=== PATIENT | female | born 1970 | race Two or more races ===

== ENCOUNTER 2025-05-11 20:04 | Emergency (ER) | payer OTHER, SELFPAY ==
--- NOTE | ~2025-05-11 | CT_ITS ---
CLINICAL HISTORY: Seizure, ?Head injury CT head without contrast Comparison: None provided Findings: BRAIN: No acute infarct, hemorrhage, or mass effect. No abnormal atrophy. CSF SPACES: No hydrocephalus or effacement of basal cisterns. SKULL: No calvarial fracture. SINUSES: No significant mucosal thickening or effusion on limited views. ORBITS: Limited views are unremarkable. OTHER: Negative. IMPRESSION: 1. No acute intracranial findings. This document has been electronically signed by: Debra Sue MD on 05/12/2025 00:01:40
[2025-05-11 20:09] VITALS: BP 126/94; PULSE 84; O2SAT 98
[2025-05-11 20:15] VITALS: BP 111/68; PULSE 79; RESP 16; TEMP 36.6; O2SAT 96; BMI 36.6
[2025-05-11 20:52] LABS: MANUAL DIFF FLAG NO
[2025-05-11 20:56] LABS: COVID-19 Test Negative (Negative); IDNOW Serial# 55D5AD1C
[2025-05-11 20:58] LABS: IDNOW Serial# 55D5AD1C; Influenza B2 Negative (Negative)
[2025-05-11 20:59] LABS: Hematocrit 44.7 % (42.0-52.0); Hemoglobin 14.3 g/dl (14.0-18.0); Imm Gran Abs Auto 0.03 X10*3/uL (0.00-0.03); Imm Gran Pct Auto 0.4 % (0.0-0.4); Lymphocytes Absolute Auto 2.1 X10*3/uL (1.2-4.9); Mean Corpuscular HGB Conc 32.0 g/dl (31.0-36.0); Mean Corpuscular Hemoglobin 31.4 pg (27.0-33.0); Mean Corpuscular Volume 98.2 fL (80.0-98.0); NRBC Abs Auto 0.000 X10*3/uL (0.0-0.012); NRBC Pct Auto 0.0 /100WBC (0.0-0.2); Platelet Count 308 X10*3/uL (160-400); Red Blood Count 4.55 X10*6/uL (4.60-5.80); White Blood Count 7.8 X10*3/uL (4.8-10.8)
--- OUTSIDE RECORDS SUMMARY | 2025-05-11 21:10 | XMS_ITS | Encounter Summary ---
Author Organization [employer] Address [address] [place] [address] Care Team Providers Care Traffic Officer Name Role Phone Daphnie Hedrick MD Primary Care Provider [phone] Shelby Solano RN Unavailable Unavailable Reason for Visit * Reason Onset Date Comments Letter Request 02/03/2023 Encounter Details Date Type Department Care Team (Late st Contact Info) Description 02/03/2023 Telephone Adult Medicine [address] [place] [address] Daphnie Hedrick MD [address] [place] [address] Letter Request Social History Tobacco Use Types Packs/Day Years Used Date Smoking Tobacco: Never Smokeless Tobacco: Never Alcohol Use Standard Drinks/Week Comments Never 0 (1 standard drink = 0.6 oz pur e alcohol) Alcohol Answer Date Recorded How often do you have a drink containing alcohol ? 0 08/26/2022 How many drinks containing a lcohol do you have on a typical day when you are drinking? 0 08/26/2022 How often do you have six or more drinks on one occasion? 0 08/26/2022 Depression Answer Date Recorded Patient Health Questionnaire-2 Score 0 08/26/2022 Comments Unknown Sex and Gender Information Value Date Recorded Sex Assigned at Female 04/18/2022 5:43 PM EDT Legal Sex Female 5:43 PM EDT Gender Identity Female 04/18/2022 5:43 PM EDT Sexual Orientation Straight 04/18/2022 5: 43 PM EDT documented as of this encounter Miscellaneous Notes * Telephone Encounter - Oniel Lee LPN - 02/03/2023 3:26 PM EDT Called pt, no answer, LVM to c/b. * Telephone Encounter - Mel Goldberg - 02/03/2023 11:04 AM EDT Pt. requesting a letter that states what her current mental conditions are. Pt. is being assisted by a program where she lives. This [facility] assists with paying pt's. rent. Without this letter pt. losses the assistance. Personal Finance Instructor Marta: [phone] documented in this encounter Plan of Treatment Upcoming Encounters Date Type Department Care Team (Late st Contact Info) Description 05/30/2025 12:40 PM EST Office Visit Adult Medicine [address] [place] [address] Daphnie Hedrick MD [address] [place] [id number] documented as of this encounter Visit Diagnoses Not on filedocumented in this encounter Care Teams Traffic Officer Relationship Specialty Start Date End Date Daphnie Hedrick MD [address] [place] [address] PCP - General 06/22/21 Shelby Solano, BERNA Registered Nurse Case Management 07/22/24 documented as of this encounter
--- OUTSIDE RECORDS SUMMARY | 2025-05-11 21:10 | XMS_ITS | Encounter Summary ---
Author Organization [employer] Address [address] [place] [address] Care Team Providers Care Eap Clinician Name Role Phone Daphnie Hedrick MD Primary Care Provider [phone] Shelby Solano RN Unavailable Unavailable Reason for Visit * Reason Comments Med Refill Encounter Details Date Type Department Care Team (Late st Contact Info) Description 2022 Refill Behavioral Health [address] [place] [address] Saba Guillen MD [address] [place] [address] Post-traumatic stress disorder, unspecified Social History Tobacco Use Types Packs/Day Years Used Date Smoking Tobacco: Never Assessed Alcohol Answer Date Recorded How often do [...] Orientation Straight 04/18/2022 5: 43 PM EDT COVID-19 Exposure Response Date Recorded In the last 10 days, have yo u been in contact with someone who was confirmed or suspected to have Coronavirus/COVID-19? No / Unsure 08/26/2022 8:39 AM EST documented as of this encounter Functional Status * Over the past 2 weeks, how often have you been bothered by any of the following problems? Question Answer Date of Assessment Author Little interest or pleasure in doing things Not at all 08/26/2022 8:49 AM EST Painter Forrester, L uis Feeling down, depressed, or hopeless Not at all 08/26/2022 8:49 AM EST Painter Forrester, L uis Patient Health Questionnaire -2 Score 0 08/26/2022 8:49 AM EST Painter Forrester, L uis documented as of this encounter Miscellaneous Notes * Telephone Encounter - Saba Guillen MD - 08/26/2022 10:41 AM EST Last seen in November as per [email or web address], she needs appt for refills documented in this encounter Plan of Treatment Upcoming Encounters Date Type Department Care Team (Late st Contact Info) Description 05/30/2025 12:40 PM EST Office Visit Adult Medicine [address] [place] [address] Daphnie Hedrick MD [address] [place] [phone] documented as of this encounter Visit Diagnoses Diagnosis Post-traumatic stress disorder, unspecified documented in this encounter Care Teams Eap Clinician Relationship Specialty Start Date End Date Daphnie Hedrick MD [address] [place] [id number] PCP - General 06/22/21 Shelby Solano, BERNA Registered Nurse Case Management 07/22/24 documented as of this encounter
--- OUTSIDE RECORDS SUMMARY | 2025-05-11 21:10 | XMS_ITS | Encounter Summary ---
Author Organization [email or web address] Address [address] [place] [address] Care Team Providers Care Hat Presser Name Role Phone Daphnie Hedrick MD Primary Care Provider [phone] Shelby Solano RN Unavailable Unavailable Encounter Details Date Type Department Care Team (Late st Contact Info) Description 07/08/2022 Abstract Adult Medicine [address] [place] [address] ProviderBlake MD Social History Tobacco Use Types Packs/Day Years Used Date Smoking Tobacco: Never Assessed Comments Unknown Sex and Gender Information Value Date Recorded Sex Assigned at Female 04/18/2022 5:43 PM EDT Legal Sex Female 5:43 PM EDT Gender Identity Female 04/18/2022 5:43 PM EDT Sexual Orientation Straight 04/18/2022 5: 43 PM EDT documented as of this encounter Plan of Treatment Upcoming Encounters Date Type Department Care Team (Late st Contact Info) Description 05/30/2025 12:40 PM EST Office Visit Adult Medicine [address] [place] [address] Daphnie Hedrick MD [address] [place] [address] documented as of this encounter Visit Diagnoses Not on filedocumented in this encounter Care Teams Hat Presser Relationship Specialty Start Date End Date Daphnie Hedrick MD [address] [place] [address] PCP - General 1/1/22 Shelby Solano, BERNA Registered Nurse Case Management 07/22/24 documented as of this encounter
--- OUTSIDE RECORDS SUMMARY | 2025-05-11 21:10 | XMS_ITS | Encounter Summary ---
Author Organization [employer] Address [address] [place] [address] Care Team Providers Care Shipping Point Inspector Name Role Phone Daphnie Hedrick MD Primary Care Provider [phone] Shelby Solano RN Unavailable Unavailable Encounter Details Date Type Department Care Team (Late st Contact Info) Description 04/06/2025 Patient Outreach Adult Medicine [address] [place] [address] Yong Shannon Social History Tobacco Use Types Packs/Day Years Used Date Smoking Tobacco: Every Day Cigarettes Smokeless Tobacco: Never Alcohol Use Standard Drinks/Week [...] PM EST Office Visit Adult Medicine [address] [place] [address] Daphnie Hedrick MD [address] [place] [address] documented as of this encounter Visit Diagnoses Not on filedocumented in this encounter Care Teams Shipping Point Inspector Relationship Specialty Start Date End Date Daphnie Hedrick MD [address] [place] [address] PCP - General 06/22/21 Shelby Solano, BERNA Registered Nurse Case Management 07/22/24 documented as of this encounter
--- OUTSIDE RECORDS SUMMARY | 2025-05-11 21:10 | XMS_ITS ---
Author Organization [employer] Address [address] [place] [address] [place] [address] Care Team Providers Care Television Maintenance Man Name Role Phone Daphnie Hedrick MD Primary Care Provider [phone] Shelby Solano RN Unavailable Unavailable High Risk Care Management Status:Enrolled (Active) Start date:06/29/2024 Enrollment date:06/29/2024 Enrollment reason:Identified as high-risk Case Team Name Relationship Phone Shelby Solano RN(Responsible Staff) Registered Nurse Continued Care and Services Coordination
--- OUTSIDE RECORDS SUMMARY | 2025-05-11 21:10 | XMS_ITS | Clinical Summary ---
Author Organization [employer] Address [address] [place] [address] 7 [place] [address] Care Team Providers Care Animal Nutrition Teacher Name Role Phone Daphnie Hedrick MD Primary Care Provider [phone] Shelby Solano RN Unavailable Unavailable Allergies Active Allergy Reactions Criticality Noted Date Comments Clonidine Dizziness 10/29/2021 Ketorolac Tromethamine 10/29/2021 Other reaction(s): Urticaria Lamotrigine Unknown 10/29/2021 Trazodone 10/29/2021 Other reaction(s): Unknown Medications nicotine (Nicoderm CQ) 14 MG/24HR patchIndications :Tobacco use disorder, mild Place 1 patch on the skin 1 (one) time each day at the same time. 30 patch 3 023 Active Blood Pressure Monitoring (Omron 10 Series BP Monitor) deviceIndication s:Essential (primary) hypertension 1 each Once daily. 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 90 tablet 025 2025 Active albuterol (2.5 MG/3ML) 0.083% nebulizer solutionIndicati ons:Moderate persistent asthma, uncomplicated Take 3 mL (2.5 mg) by nebulization every 6 (six) hours if needed for shortness of breath or wheezing. 360 mL 1 025 2025 Active Additional Information Patient not taking.Reason: Not available, Reported on 05/02/2025 Respiratory Therapy Supplies (Nebulizer/Tubin g/Mouthpiece) kit NEBULIZER MACHINE WITH TUBING AND MASK DISPENSE:1 REFILL:0 NEED:LIFETIME PATIENT KNOWS HOW TO USE MACHINE DX:J45.40 [employer] ID#[id number] 1 kit 025 2025 Active Additional Information Patient not taking.Reason: Not available, Reported on 05/02/2025 [facility]. Devices (Commode) [facility] COMMODE DISPENSE:1 REFILL:0 WEIGHT: 201LBS DX:G62.9,N39.49 8 [employer] ID#[id number] 1 each Active Incontinence Supply Disposable [facility] ADULT PULL UP SIZE LARGE 5 PER DAY DISPENSE:150/MO NTH REFILL:12 WEIGHT:201LBS DX:G62.8, N39.498 [facility] ID#[id number] 150 Units 12 025 2025 Active Cholecalciferol (Vitamin D3) 1000 units capsuleIndicatio ns:Vitamin D deficiency Take 1,000 Units by mouth Once per day. 90 capsule 3 025 2025 Active FLUoxetine (PROzac) 20 MG capsuleIndicatio ns:Depression with anxiety Take 1 capsule (20 mg) by mouth Once per day. 90 capsule 025 2025 Active hydrOXYzine HCl (Atarax) 50 MG tabletIndication s:Depression with anxiety Take 2 tablets (100 mg) by mouth 3 times daily. 540 tablet 2025 Active ipratropium-albu terol (Combivent Respimat) 20-100 MCG/ACT inhalerIndicatio ns:Moderate persistent asthma, uncomplicated Inhale 1 puff 2 times daily. 4 g 11 Active lisinopril 20 MG tabletIndication s:Essential (primary) hypertension Take 1 tablet (20 mg) by mouth Once per day. 90 tablet 025 2025 Active prazosin (Minipress) 1 MG capsuleIndicatio ns:Posttraumatic stress disorder Take 1 capsule (1 mg) by mouth at bedtime. TAKE 1 CAPSULE BY MOUTH AT BEDTIME 90 capsule 11/07/08 Active QUEtiapine (SEROquel) 300 MG tabletIndication s:Insomnia due to mental disorder Take 1 tablet (300 mg) by mouth at bedtime. 90 tablet 2025 Active topiramate 50 MG tabletIndication s:Chronic migraine without aura without status migrainosus, not intractable Take 1 tablet (50 mg) by mouth every 8 (eight) hours. 270 tablet 3 2025 Active topiramate 50 MG tabletIndication s:Chronic migraine without aura without status migrainosus, not intractable Take 1 tablet (50 mg) by mouth every 8 (eight) hours. 270 tablet 1 2024 Discontinued(R eorder (will not trigger notification to Pharmacy)) ipratropium-albu terol (Combivent Respimat) 20-100 MCG/ACT inhalerIndicatio ns:Moderate persistent asthma, uncomplicated Inhale 1 puff 2 times daily. 4 g 11 2024 Discontinued(R eorder (will not trigger notification to Pharmacy)) Cholecalciferol (Vitamin D3) 1000 units capsuleIndicatio ns:Vitamin D deficiency Take 1,000 Units by mouth Once per day. 90 capsule 3 2024 Discontinued(R eorder (will not trigger notification to Pharmacy)) hydrOXYzine HCl (Atarax) 50 MG tabletIndication s:Depression with anxiety Take 2 tablets (100 mg) by mouth 3 times daily. 540 tablet 2024 Discontinued(R eorder (will not trigger notification to Pharmacy)) lisinopril 20 MG tabletIndication s:Essential (primary) hypertension Take 1 tablet (20 mg) by mouth Once per day. 90 tablet 2024 Discontinued(R eorder (will not trigger notification to Pharmacy)) QUEtiapine (SEROquel) 300 MG tabletIndication s:Insomnia due to mental disorder Take 1 tablet (300 mg) by mouth at bedtime. 90 tablet 025 2024 Discontinued(R eorder (will not trigger notification to Pharmacy)) prazosin (Minipress) 1 MG capsuleIndicatio ns:Posttraumatic stress disorder Take 1 capsule (1 mg) by mouth at bedtime. TAKE 1 CAPSULE BY MOUTH AT BEDTIME 90 capsule 025 2024 Discontinued(R eorder (will not trigger notification to Pharmacy)) FLUoxetine (PROzac) 20 MG capsuleIndicatio ns:Depression with anxiety Take 1 capsule (20 mg) by mouth Once per day. 90 capsule 025 2024 Discontinued(R eorder (will not trigger notification to Pharmacy)) Active Problems Problem Noted Date Diagnosed Date Urinary incontinence 09/05/2024 Alcohol abuse 07/08/2022 Anxiety 07/08/2022 Bipolar 2 disorder ([facility]) 07/08/2022 Chronic vaginitis 07/08/2022 Compartment syndrome 07/08/2022 Constipation 07/08/2022 Depressed bipolar I disorder ([facility]) Hearing loss of left ear 07/08/2022 Hot flashes due to menopause 07/08/2022 Hyperlipidemia 07/08/2022 Hypertension 07/08/2022 Insomnia 07/08/2022 Decreased appetite 07/08/2022 Major depressive disorder with single episode Malunion of fracture 07/08/2022 Migraine headache 07/08/2022 Moderate persistent asthma, uncomplicated 2022 Morbid obesity ([facility]) 07/08/2022 Neuropathy 07/08/2022 Nondisplaced fracture of hea d of right radius, subsequent encounter for closed fracture with malunion 07/08/2022 Posttraumatic stress disorder 07/08/2022 Reduced visual acuity 07/08/2022 Scleroderma 07/08/2022 Vitamin D deficiency 07/08/2022 Encounters Date Type Department Care Team Description 05/05/2025 Refill Adult Medicine [address] [place] [address] Daphnie Hedrick MD Vitamin D deficiency; Depression with anxiety; Moderate persistent asthma, uncomplicated; Essential (primary) hypertension; Posttraumatic stress disorder; Insomnia due to mental disorder; Chronic migraine without aura without status migrainosus, not intractable 05/03/2025 Telephone Adult Medicine [address] [place] [address] Daphnie Hedrick MD Referral (Pt called because she needs a clearance letter from PCP to enter drug/alcohol rehab at [facility]. , P: [phone]) 05/03/2025 Patient Outreach Adult Medicine [address] [place] [phone] Yong Shannon 05/03/2025 Telephone [facility] [address] [place] [address] Jenny Wells 05/02/2025 2:30 PM EST Office Visit [facility] [address] [place] [address] [phone] Jenny Wells 05/02/2025 1:40 PM EST Office Visit Adult Medicine [address] [place] [address] 71086 Tammi Lind, ANP- Alcohol abuse (Primary Dx); Essential (primary) hypertension; Depression with anxiety; Chronic midline thoracic back pain 05/02/2025 Patient Outreach Adult Medicine [address] [place] [address] [phone] Shelby Solano, BERNA 05/02/2025 Telephone Adult Medicine [address] [place] [address] 50193 Daphnie Hedrick MD Clearance letter request 04/28/2025 Patient Outreach Adult Medicine [address] [place] [address] [phone] Yong Shannon 04/27/2025 Patient Outreach Adult Medicine [address] [place] [address] [phone] Shelby Solano, BERNA 04/20/2025 Patient Outreach Adult Medicine [address] [place] [address] 24208 Shelby Solano, BERNA 04/13/2025 Patient Outreach Adult Medicine [address] [place] [address] 76754 Shelby Solano, BERNA 04/07/2025 Telephone Adult Medicine [address] [place] [address] 37053 Mami Wright, BERNA 04/06/2025 Patient Outreach Adult Medicine [address] [place] [address] [phone] Shelby Solano, BERNA 04/06/2025 Patient Outreach Adult Medicine [address] [place] [address] 11333 Yong Shannon 04/04/2025 Patient Outreach Adult Medicine [address] [place] [address] Shelby Solano, BERNA 03/31/2025 Patient Outreach Adult Medicine [address] [place] [address] Yong Shannon 03/27/2025 Patient Outreach Adult Medicine [address] [place] [address] Shelby Solano RN 03/13/2025 Patient Outreach Adult Medicine [address] [place] [address] [phone] Shelby Solano, BERNA 03/13/2025 Patient Outreach Adult Medicine [address] [place] [address] [phone] Yong Shannon 02/27/2025 Patient Outreach Adult Medicine [address] [place] [address] [phone] Shelby Solano RN 02/20/2025 Telephone Adult Medicine [address] [place] [address] [phone] Andrea Cosby NP 02/13/2025 3:00 PM EDT Office Visit Patient [facility] [address] [place] [address] [phone] Tasneem Alatorre, SAL Hypertension, unspecified type (Primary Dx) 02/13/2025 Patient Outreach Adult Medicine [address] [place] [address] 39875 Yong Shannon 02/10/2025 Patient Outreach Adult Medicine [address] [place] [address] 92432 Shelby Solano, BERNA from Last 3 Months Immunizations Immunization Administration Dates Next Due Influenza Injectable Quadriv alant Preservative Free IIV4 MDCK 04/30/2018 Influenza injectable quadriv alent IIV4 with preservative 05/07/2022,04/16/2019 Influenza injectable quadriv alent preservative free 03/08/2021,06/06/2020,03/07/2020,04/22,03/13/2017,03/05/2016 Influenza, seasonal, injecta ble, preservative free 09/05/2024,05/05/2024,04/15/2023 Moderna Covid-19 Vaccine 6+ Bivalent 05/07/2022 Pfizer Covid-19 Vaccine 12+ 02/12/2021 Pneumococcal Polysaccharide PPSV23 05/05,04/15/2023,08/26/2022,05/09 Tdap 09/05/2024,07/05/2014 Zoster, Recombinant 08/26/2022 Social History Tobacco Use Types Packs/Day Years Used Date Smoking Tobacco: Every Day Cigarettes Smokeless Tobacco: Never Tobacco Cessation:Ready to Q uit: Yes; Counseling Given: Not Answered Alcohol Use Standard Drinks/Week Comments Never 0 (1 standard drink = 0.6 oz pur e alcohol) Alcohol Answer Date Recorded How often do you have a drink containing alcohol ? 0 05/02/2025 How many drinks containing a lcohol do you have on a typical day when you are drinking? 1 05/02/2025 How often do you have six or more drinks on one occasion? 0 05/02/2025 Housing Stability Answer Date Recorded What is your housing situation today? I have darnell montiel 05/02/[address] you li ve. Do you have problems with any of the following? None of the above 05/02/2025 Food Insecurity Answer Date Recorded Within the past 12 months, y ou worried that your food would run out before you got money to buy more: Never True 05/02/2025 Within the past 12 months,th e food you bought just didn't last and you didn't have enough money to get more: Never True 04/2025 Transportation Answer Date Recorded In the past 12 months, has l ack of transportation kept you from medical appts, meetings, work or from getting things needed for daily living? No 05/02/2025 Utilities Answer Date Recorded In the past 12 months, has t he electric, gas, oil or water company threatened to shut off services in your home? No 05/02/2025 Depression Answer Date Recorded Patient Health Questionnaire-2 Score 0 05/02/2025 Internet Access Answer Date Recorded Internet Access Q1 Yes 05/02/2025 Internet Access Q2 Not on file 05/02/2025 Comments Unknown Sex and Gender Information Value Date Recorded Sex Assigned at Female 04/18/2022 5:43 PM EDT Legal Sex Female 5:43 PM EDT Gender Identity Female 04/18/2022 5:43 PM EDT Sexual Orientation Straight 04/18/2022 5: 43 PM EDT Last Filed Vital Signs Vital Sign Reading Time Taken Comments Blood Pressure 154/106 05/02/2025 2:37 PM EST Pulse 80 05/02/2025 2:37 PM EST Temperature 35.9 C (96.7 F) 05/02/2025 1:47 PM EST Respiratory Rate 20 09/05/2024 2:28 PM EDT Oxygen Saturation 98% 05/02/2025 1:47 PM EST Inhaled Oxygen Concentration - - Weight 97.1 kg (214 lb) 05/02/2025 1:47 PM EST Height 160 cm (5' 3 ) 05/02/2025 1:47 PM EST Body Mass Index 37.91 05/02/2025 1:47 PM EST Plan of Treatment Upcoming Encounters Date Type Department Care Team (Late st Contact Info) Description 05/30/2025 12:40 PM EST Office Visit Adult Medicine [address] [place] [address] Daphnie Hedrick MD [address] [place] [address] Health Maintenance Due Date Last Done Comments CT Colonography 1970 Colonoscopy 1970 Colorectal Cancer Screening 1970 FIT DNA/Cologuard 1970 FIT 1970 FOBT 1970 Sigmoidoscopy 1970 Hepatitis B Vaccines (1 of 3 - 19+ 3-dose series) 1989 Pap Smear 08/26/1991 Cervical Cancer Screening 2000 HPV/Cotest 2000 Mammogram 2010 RSV Patients and Patients Aged 60 years or older (1 - Risk 50-74 years 1-dose series) 2020 Zoster Vaccines (2 of 2) 10/21/2022 08/26/2022 COVID-19 Vaccine ( - season) 2025 05/07/2022, 02/12/2021 Influenza Vaccine (#1) 2025 , 05/05/2024, 04/15/2023, Additional history exists Pneumococcal Vaccine: 50+ Years (2 of 2 - PCV) 05/05/2025 05/05/2024, 04/15/2023, 08/26/2022, Additional history exists Tobacco Screening 02/13/2026 02/13/2025 Alcohol/Substance Use Screening 05/02/2026 05/02/2025 Depression Screening 05/02/2026 05/02/2025, 05/02/20 Disability Screening 05/02/2026 05/02/2025 SDOH Screening 05/02/2026 05/02/2025 Lipid Panel 09/05/2029 09/05/2024, 04/18/2020 DTaP/Tdap/Td Vaccines (3 - Td or Tdap) 09/05/2034 09/05/2024, 07/05/2014 HIV Screening Completed 09/05/2024, 04/18/2020 Hepatitis C Screening Completed 09/05/2024, 020 HIB Vaccines Aged Out No longer eligi ble based on patient's age to complete this topic HPV Vaccines Aged Out No longer eligi ble based on patient's age to complete this topic Hepatitis A Vaccines Aged Out No long er eligible based on patient's age to complete this topic IPV Vaccines Aged Out No longer eligi ble based on patient's age to complete this topic Meningococcal B Vaccine Aged Out No l onger eligible based on patient's age to complete this topic Meningococcal Vaccine Aged Out No deepika randall eligible based on patient's age to complete this topic RSV under 20 months Aged Out No longe r eligible based on patient's age to complete this topic Rotavirus Vaccines Aged Out No longer eligible based on patient's age to complete this topic Procedures Procedure Name Priority Date/Time Associated Diagnosis Comments ECG 12-LEAD Routine 02/13/2025 4:13 PM EDT Hypertension, unspecified type POCT GLUCOSE Routine 02/13/2025 4:04 PM EDT Hypertension, unspecified type HEPATITIS C AB W/REFL TO HCV RNA, QN, PCR Routine 09/05/2024 4:35 PM EDT HIV 1/2 ANTIGEN/ANTIBODY, FOURTH GENERATION W/RFL Routine 09/05/2024 4:35 PM EDT LIPID PANEL WITH REFLEX TO DIRECT LDL Routine 09/05/2024 4:35 PM EDT Other fatigue from Last 3 Months or Most Recently Relevant to Health Maintenance Results * ECG 12 lead (02/13/2025 4:13 PM EDT) Narrative Tasneem Alatorre NP - 02/13/2025 4:13 PM EDT Sinus rhythm, HR 69 bpm Tasneem Alatorre NP ECG ORDERABLES Edited Resul t - Final * Random Blood Sugar (fingerstick) (02/13/2025 4:04 PM EDT) Glucose Blood, POC 92 60 - 200 mg/dL Blood Capillary blood specimen / Unknown 02/13/2025 4:04 PM EDT Tasneem Alatorre NP POINT OF CARE TEST ENTER/JASON T ORDERABLES Final Result * (ABNORMAL) Lipid Panel with Reflex to Direct LDL (09/05/2024 4:35 PM EDT) Cholesterol, Total 203(H) <200 mg/dL [facility] [place] [facility] HDL Cholesterol 51 > OR = 50 mg/dL [facility] [place] [facility] Triglycerides 149 <150 mg/dL [facility] [place] [facility] LDL Cholesterol 126(H) mg/dL [facility] [place] [facility] Comment: Reference range: <100 Desirable range <100 mg/dL for primary prevention; <70 mg/dL for patients with CHD or diabetic patients with > or = 2 CHD risk factors. LDL-C is now calculated using the Gina calculation, which is a validated novel method providing better accuracy than the Friedewald equation in the estimation of LDL-C. Jaren PELAEZ et al. KRISTIAN. 2013;310(19): 4727-9245 (http://education.Do[employer] Together/faq/EFU728) Chol/HDLC Ratio 4.0 <5.0 (calc) [facility] [place] [facility] Non-HDL Cholesterol 152(H) <130 mg/dL [facility] [place] [facility] Comment: For patients with diabetes plus 1 major ASCVD risk factor, treating to a non-HDL-C goal of <100 mg/dL (LDL-C of <70 mg/dL) is considered a therapeutic option. Blood 09/05/2024 4:35 PM EDT 09/05/2024 4:37 PM EDT Daphnie Hedrick MD LAB BLOOD ORDERABLES Final Res ult Performing Organization Address [facility] de Phone Number [address], [place] [address] [facility] [place] [employer] [address] * Hepatitis C Antibody with Reflex to HCV, RNA, Quantitative, Real-Time PCR (09/05/2024 4:35 PM EDT) Hepatitis C Antibody NON-REACT NEY NON-REACT NEY [facility] [place] [facility] Comment: HCV antibody was non-reactive. There is no laboratory evidence of HCV infection. In most cases, no further action is required. However, if recent HCV exposure is suspected, a test for HCV RNA (test code 89824) is suggested. For additional information please refer to http://education.[employer]/faq/PFO79d5 (This link is being provided for informational/ educational purposes only.) 09/05/2024 4:35 PM EDT 09/05/2024 4:37 PM EDT Daphnie Hedrick MD LAB BLOOD ORDERABLES Final Res ult Performing Organization Address [facility] Co de Phone Number [address], [place] [address] [facility] [place] [employer] [place] [address] * HIV-1/2 Antigen and Antibodies, Fourth Generation, with Reflexes (09/05/2024 4:35 PM EDT) HIV Antigen/Antibody, 4th Generation NON-REAC TIVE NON-REAC TIVE [facility] [place] [facility] Comment: HIV-1 antigen and HIV-1/HIV-2 antibodies were not detected. There is no laboratory evidence of HIV infection. PLEASE NOTE: This information has been disclosed to you from records whose confidentiality may be protected by state law. If your state requires such protection, then the state law prohibits you from making any further disclosure of the information without the specific written consent of the person to whom it pertains, or as otherwise permitted by law. A general authorization for the release of medical or other information is NOT sufficient for this purpose. For additional information please refer to http://education.[employer]/faq/RBM375 (This link is being provided for informational/ educational purposes only.) The performance of this assay has not been clinically validated in patients less than 2 years old. 09/05/2024 4:35 PM EDT 09/05/2024 4:37 PM EDT Daphnie Hedrick MD LAB BLOOD ORDERABLES Final Res ult [facility] [address], [place] [address] [facility] [place] [facility] [address] [place] [address] from Last 3 Months or Most Recently Relevant to Health Maintenance Insurance [facility] STANDARD [facility] [employer] Care Teams Animal Nutrition Teacher Relationship Specialty Start Date End Date Daphnie Hedrick MD [address] [place] [id number] PCP - General 06/22/21 Shelby Solano RN Registered Nurse Case Management 07/22/24
--- OUTSIDE RECORDS SUMMARY | 2025-05-11 21:10 | XMS_ITS | Encounter Summary ---
Author Organization [employer] Address [address] [place] [address] [place] [address] Care Team Providers Care Regulatory Law Specialist Name Role Phone Daphnie Hedrick MD Primary Care Provider [phone] Shelby Solano RN Unavailable Unavailable Reason for Visit * Reason [place] Date Comments Med Refill 05/05/2025 Encounter Details Date Type Department Care Team (Late st Contact Info) Description 05/05/2025 Refill Adult Medicine [address] [place] [address] Daphnie Hedrick MD [address] [place] [address] Vitamin D deficiency; Depression with anxiety; Moderate persistent asthma, uncomplicated; Essential (primary) hypertension; Posttraumatic stress disorder; Insomnia due to mental disorder; Chronic migraine without aura without status migrainosus, not intractable Social History Tobacco Use Types Packs/Day Years [...] encounter Miscellaneous Notes * Telephone Encounter - Willa Rodriguez - 05/05/2025 1:51 PM EST Please review the following medication requested by patient: Rx(s) pended for provider review/approval to patient's preferred pharmacy Please adjust QTY/refills as you see fit before sending rx OR refuse if rx is not appropriate Requested Prescriptions Pending Prescriptions Disp Refills Cholecalciferol (Vitamin D3) 1000 units capsule 90 capsule 3 Sig: Take 1,000 Units by mouth Once per day. FLUoxetine (PROzac) 20 MG capsule 90 capsule 0 Sig: Take 1 capsule (20 mg) by mouth Once per day. hydrOXYzine HCl (Atarax) 50 MG tablet 540 tablet 0 Sig: Take 2 tablets (100 mg) by mouth 3 times daily. ipratropium-albuterol (Combivent Respimat) 20-100 MCG/ACT inhaler 4 g 11 Sig: Inhale 1 puff 2 times daily. lisinopril 20 MG tablet 90 tablet 0 Sig: Take 1 tablet (20 mg) by mouth Once per day. prazosin (Minipress) 1 MG capsule 90 capsule 0 Sig: Take 1 capsule (1 mg) by mouth at bedtime. TAKE 1 CAPSULE BY MOUTH AT BEDTIME QUEtiapine (SEROquel) 300 MG tablet 90 tablet 0 Sig: Take 1 tablet (300 mg) by mouth at bedtime. topiramate 50 MG tablet 270 tablet Sig: Take 1 tablet (50 mg) by mouth every 8 (eight) hours. *Note-pt has updated pharmacy now* * Telephone Encounter - Mel Goldberg - 05/05/2025 11:46 AM EST REFILL REQUEST FORM Patient demographics Renee Rojo, 1970 Preferred callback # (And best time to reach patient) [phone] Preferred pharmacy (Make sure this is updated in patient's chart) [address] [address] Medications being requested (Include as much as info as possible; name, dosage, etc.) (All medications) Comments Pt. has updated pharmacy. Reminder: Please advise patient that if there are still refills remaining on their prescription, they need to contact the pharmacy directly to request a refill documented in this encounter Plan of Treatment Upcoming Encounters Date Type Department Care Team (Late st Contact Info) Description 05/30/2025 12:40 PM EST Office Visit Adult Medicine [address] [place] [address] Daphnie Hedrick MD [address] [place] [address] documented as of this encounter Visit Diagnoses Diagnosis Vitamin D deficiency Depression with anxiety Dysthymic disorder Moderate persistent asthma, uncomplicated Essential (primary) hypertension Unspecified essential hypertension Posttraumatic stress disorder Insomnia due to mental disorder Chronic migraine without aura without status migrainosus, not intractable documented in this encounter Care Teams Regulatory Law Specialist Relationship Specialty Start Date End Date Daphnie Hedrick MD [address] [place] [id number] PCP - General 06/22/21 Shelby Solano RN Registered Nurse Case Management 07/22/24 documented as of this encounter
--- OUTSIDE RECORDS SUMMARY | 2025-05-11 21:10 | XMS_ITS ---
Author Organization [employer] Address [address] [place] [address] Care Team Providers Care Doughnut Icer Machine Name Role Phone Daphnie Hedrick MD Primary Care Provider [phone] Shelby Solano RN Unavailable Unavailable Community Resource Coordination Status:Enrolled (Active) Start date:06/29/2024 Enrollment date:06/29/2024 Enrollment reason:Identified using claims or encounter data Case Team Name Relationship Phone Yong Shannon(Responsible Staff) Continued Care and Services Coordination
--- OUTSIDE RECORDS SUMMARY | 2025-05-11 21:10 | XMS_ITS | Clinical Summary ---
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 Name Role Phone Unavailable Primary Care Provider Unavailabl e Social History Tobacco Use Types Packs/Day Years Used Date Smoking Tobacco: Never Assessed Comments Unknown Sex and Gender Information Value Date Recorded Sex Assigned at Not on file Legal Sex Female 1:37 PM EDT Gender Identity Not on file Sexual Orientation Not on file Plan of Treatment Health Maintenance Due Date Last Done Comments Breast Cancer Screening 1970 Colorectal Cancer Screening: Colonoscopy 1970 DTaP,Tdap,and Td Vaccines (1 - Tdap) 1989 Hepatitis B Vaccines (1 of 3 - 19+ 3-dose series) 1989 Cervical Cancer Screening: P ap Smear 08/26/1991 Pneumococcal Vaccine: 50+ Ye ars (1 of 1 - PCV) 2020 Zoster Vaccines (1 of 2) 2020 HIV Screening 01/13/2024 Hepatitis C Screening 01/13/2024 Social Influencers of Health Screening 01/13/2024 Depression Screening 06/22/2024 COVID-19 Vaccine (1 - 2024-2 6 season) 2025 Influenza Vaccine (#1) 2025 RSV Immunization Adult Patie nts (1 - 1-dose 75+ series) 2045 HIB Vaccines Aged Out No longer eligi [...] on patient's age to complete this topic MMR Vaccines Aged Out No longer eligi ble based on patient's age to complete this topic Meningococcal ACWY Vaccine Aged Out N o longer eligible based on patient's age to complete this topic Meningococcal B Vaccine Aged Out No l onger eligible based on patient's age to complete this topic RSV Immunization Patients Un soledad 20 months Aged Out No longer eligible b ased on patient's age to complete this topic Varicella Vaccines Aged Out No longer eligible based on patient's age to complete this topic
[2025-05-11 21:15] LABS: Appearance Urine Clear; Glucose Urine UA Negative (Negative); PH 6.0 (5.0-9.0); Specific Gravity - Urine 1.020 (1.005-1.025)
[2025-05-11 21:26] LABS: Cannabinoid Screen Urine Not Detected (Not Detect)
[2025-05-11 21:45] LABS: Alanine Aminotransferase 39 U/L (0-31); Albumin Level 4.4 g/dL (3.5-5.0); Alkaline Phosphatase 122 U/L (39-117); Anion Gap 10 (12-20); Aspartate Amino Transferase 38 U/L (5-31); Blood Urea Nitrogen 20 mg/dL (9-16); Calcium 10.4 mg/dL (8.4-10.2); Carbon Dioxide 26 mmol/L (22-29); Chloride 108 mmol/L (96-108); Creatinine Clr Calc Pharmacy 71.7; Estimated Glomerular Filt Rate > 60; Magnesium 1.8 mg/dL (1.6-2.6); Potassium 5.3 mmol/L (3.3-5.1); Sodium 139 mmol/L (135-145); Total Protein 8.4 g/dL (6.5-8.0)
[2025-05-11 22:00] VITALS: BP 117/73; PULSE 74; RESP 14
--- NOTE | 2025-05-11 22:20 | PC.NURSE ---
Addendum entered by Karrie Suarez RN 05/11/25 22:37: Pt reports last drink was over 3 days ago. Original Note: Pt A&Ox3, reports pain to right shoulder, denies any injury, reports being seen at hospital for same. Pt came in today from [facility] reporting she had 4 seizures at facility. 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 Pt reports N/V x today and diarrhea x over 1 week. VSS, CIWA of 17, Pt ambulated to independently with steady gait.
--- NOTE | 2025-05-12 00:10 | ED_ITS ---
HPI - Seizure General Chief Complaint: Seizure Stated Complaint: coming esthela, seizure,alcohol width,bp160/100 Time Seen by Provider: 05/11/25 22:24 History of Present Illness ED Provider: Pennie Tang HPI Narrative: 54-year-old female with a medical history significant for alcohol abuse, prior withdrawal seizure presents to the ED from [facility] for evaluation of seizures at the detox facility. The patient reports that she was in the facility, asked nursing staff several times for a Valium as she felt very shaky and uneasy, and felt that she was withdrawing. Patient reports that she was told that she was ?not scoring , so she went and laid down in the bed. Reports that she woke up with EMS bringing her to the hospital for a seizure. Reports that she does not recall the event. Unclear if there was a postictal period. Per triage notes, the patient had 4 seizures at the detox facility today. She reports some nausea without vomiting, and endorses diarrhea for a days. She denies any recent antibiotic use, recent travel. Does report that diarrhea is occasionally linked to alcohol use. Upon arrival to the ED she is requesting Valium for her symptoms. Denies any chest pain or pressure, shortness of breath, abdominal pain. No fever or chills. No urinary complaints. Related Data Allergies Allergy/AdvReac Type Severity Reaction Status Date / Time ketorolac Allergy Hives Verified 05/11/25 20:18 lamotrigine (From Lamictal) Allergy Hives Verified 05/11/25 20:18 latex Allergy Hives Verified 05/11/25 20:18 Review of Systems 2 Review of Systems: ROS is otherwise negative unless mentioned in HPI. [facility] Social History Social History Alcohol intake: current Alcohol intake frequency: 3 or more drinks per day Alcohol type: beer and hard liquor Smoked in Last 30 Days: Yes Use of substances other than those prescribed or required for medical reasons: No Substance Use Type: Opiates Advance Directives: No Advance Directives Information Provided: No Physical Exam 2 Exam: Exam: Nursing notes and vital signs reviewed. Constitutional: Well-appearing, NAD. Alert. Oriented X3. Eyes: PERRLA, EOMI. ENT: Pharynx normal. Neck: Normal inspection. Neck supple. CVS: Normal heart rate and rhythm. Pulses normal. Respiratory: No respiratory distress. Breath sounds normal. Abdomen: Soft and nontender. Nondistended. Skin: Skin warm and dry. Normal skin color. Extremities: No lower extremity edema. Neuro: Oriented X 3. No motor deficit. Vital Signs: Vital Signs: Last Vital Signs Temp 97.8 F 05/11/25 20:15 Pulse 74 05/11/25 22:00 Resp 14 05/11/25 22:00 BP 117/73 05/11/25 22:00 Pulse Ox 96 05/11/25 20:15 O2 Del Method Room Air 05/11/25 20:15 BMI result Body Mass Index 36.6 Medications Administered Discontinued Medications Generic Name Dose Route Start Last Admin Trade Name Yoshiq PRN Reason Stop Dose Admin Diazepam 5 mg 05/11/25 22:51 05/11/25 23:10 Diazepam 5 Mg Tablet PO 05/11/25 22:52 5 mg ONCE ONE Administration Sodium Chloride 1,000 mls @ 999 mls/hr 05/11/25 22:51 05/11/25 23:10 Ns IV 05/11/25 23:51 999 mls/hr .Q1H1M ONE Administration Medical Decision Making Medical Decision Making MDM Narrative: Upon my initial assessment, she overall appears well. Answering all my questions appropriately. Reports that she still feels a little bit uneasy, she has had an alcohol withdrawal seizure before. She is requesting a Valium, as she was not given any medications at the detox facility today. Her lab work was overall reassuring, mild elevation in LFTs at 38, 39, as expected given alcohol use. Patient reports she has been drinking for 2 years. Urinalysis with no signs of infection urinalysis however urine toxicology is positive for methadone, fentanyl, and benzodiazepines. She reports that she has been at the facility for the past 3 days. She is unsure if she hit her head or not. We will proceed with CT imaging of the head. [id number]-- The patient is on methadone, and per [facility] staff they perform EKG monitoring which have been normal. I have added on an EKG here, given K is mildly elevated at 5.2. given no T wave abnormalities and in the absence of CP, this does not require any intervention. ekg NSR. CT of the head with no acute abnormality. Negative COVID, flu. Lactic is flat, less likely true seizure activity. Plan to discharge the patient back to the facility, given she reports feeling significant improvement and etoh detox can be further managed there. Patient is agreeable to plan of care. Differential Diagnosis Differential Diagnoses: The differential diagnosis associated with the presentation includes seizure, pseudo seizure, syncope, etoh w/d Admission/Observation Consideration of admission/observation: Escalation of care including admission/observation considered (not indicated, can be d/c back to facility.) Lab Data MDM Lab Attestation statement: I reviewed the patient's lab results. (reassuring overall) 05/11/25 20:49 05/11/25 21:19 Labs: Lab Results 05/11/25 05/11/25 05/11/25 Range/Units 20:39 20:49 21:08 WBC 7.8 (4.8-10.8) X10*3/uL RBC 4.55 L (4.60-5.80) X10*6/uL Hgb 14.3 (14.0-18.0) g/dl Hct 44.7 (42.0-52.0) % MCV 98.2 H (80.0-98.0) fL MCH 31.4 (27.0-33.0) pg MCHC 32.0 (31.0-36.0) g/dl RDW 13.2 (11.0-16.0) % Plt Count 308 (160-400) X10*3/uL MPV 10.9 (9.4-12.4) fL Immature Gran % (Auto) 0.4 (0.0-0.4) % Neut % (Auto) 65.7 (45-73) % Lymph % (Auto) 26.5 (20-40) % [place] % (Auto) 6.1 (2-11) % Eos % (Auto) 0.8 (0-4) % Baso % (Auto) 0.5 (0-2) % Lymph # (Auto) 2.1 (1.2-4.9) X10*3/uL [place] # (Auto) 0.5 (0.1-1.2) X10*3/uL Eos # (Auto) 0.1 (0.0-0.4) X10*3/uL Baso # (Auto) 0.0 (0.0-0.2) X10*3/uL Abs Immat Gran (auto) 0.03 (0.00-0.03) X10*3/uL Absolute Neuts (auto) 5.1 (2.0-8.3) x10*3/uL Absolute Nucleated RBC 0.000 (0.0-0.012) X10*3/uL Nucleated RBC % (auto) 0.0 (0.0-0.2) /100WBC Sodium Cancelled Potassium Cancelled Chloride Cancelled Carbon Dioxide Cancelled Anion Gap Cancelled BUN Cancelled Creatinine Cancelled Estim Creat Clear Calc Cancelled Estimated GFR Cancelled Random Glucose Cancelled Lactic Acid (0.5-2.0) mmol/L Calcium Cancelled Magnesium (1.6-2.6) mg/dL Total Bilirubin Cancelled AST Cancelled ALT Cancelled Alkaline Phosphatase Cancelled Total Protein Cancelled Albumin Cancelled Beta HCG, Quant Cancelled Urine Color Urine Appearance Urine pH (5.0-9.0) Ur Specific [place] (1.005-1.025) Urine Protein (Neg-Trace) mg/dL Urine Glucose (UA) (Negative) mg/dL Urine Ketones (Negative) mg/dL Urine Blood (Negative) Urine Nitrite (Negative) Ur Leukocyte Esterase (Negative) Urine Opiates Screen Not Detected (Not Detect) Ur Buprenorphine Scrn Not Detected (Not Detect) ng/mL Ur Oxycodone Screen Not Detected (Not Detect) ng/mL Urine Methadone Screen Positive H (Not Detect) ng/mL Urine Fentanyl Screen POSITIVE H (Not Detect) Ur Barbiturates Screen Not Detected (Not Detect) Ur Phencyclidine Scrn Not Detected (Not Detect) Ur Amphetamines Screen Not Detected (Not Detect) U Benzodiazepines Scrn POSITIVE H (Not Detect) Urine Cocaine Screen Not Detected (Not Detect) U Marijuana (THC) Screen Not Detected (Not Detect) Ethyl Alcohol mg/dL COVID-19 (DENISE) Negative (Negative) COVID-19 Clin Com See Note Influenza Type A (KIYA) Negative (Negative) Influenza Type B (KIYA) Negative (Negative) Influenza A & B Note See Note 05/11/25 05/11/25 05/11/25 Range/Units 21:10 21:19 23:43 WBC (4.8-10.8) X10*3/uL RBC (4.60-5.80) X10*6/uL Hgb (14.0-18.0) g/dl Hct (42.0-52.0) % MCV (80.0-98.0) fL MCH (27.0-33.0) pg MCHC (31.0-36.0) g/dl RDW (11.0-16.0) % Plt Count (160-400) X10*3/uL MPV (9.4-12.4) fL Immature Gran % (Auto) (0.0-0.4) % Neut % (Auto) (45-73) % Lymph % (Auto) (20-40) % [place] % (Auto) (2-11) % Eos % (Auto) (0-4) % Baso % (Auto) (0-2) % Lymph # (Auto) (1.2-4.9) X10*3/uL [place] # (Auto) (0.1-1.2) X10*3/uL Eos # (Auto) (0.0-0.4) X10*3/uL Baso # (Auto) (0.0-0.2) X10*3/uL Abs Immat Gran (auto) (0.00-0.03) X10*3/uL Absolute Neuts (auto) (2.0-8.3) x10*3/uL Absolute Nucleated RBC (0.0-0.012) X10*3/uL Nucleated RBC % (auto) (0.0-0.2) /100WBC Sodium 139 Potassium 5.3 H Chloride 108 Carbon Dioxide 26 Anion Gap 10 L BUN 20 H Creatinine 0.94 Estim Creat Clear Calc 71.7 Estimated GFR > 60 Random Glucose 101 Lactic Acid 0.9 (0.5-2.0) mmol/L Calcium 10.4 H Magnesium 1.8 (1.6-2.6) mg/dL Total Bilirubin 0.2 AST 38 H ALT 39 H Alkaline Phosphatase 122 H Total Protein 8.4 H Albumin 4.4 Beta HCG, Quant 3 Urine Color Yellow Urine Appearance Clear Urine pH 6.0 (5.0-9.0) Ur Specific [place] 1.020 (1.005-1.025) Urine Protein Negative (Neg-Trace) mg/dL Urine Glucose (UA) Negative (Negative) mg/dL Urine Ketones Negative (Negative) mg/dL Urine Blood Negative (Negative) Urine Nitrite Negative (Negative) Ur Leukocyte Esterase Negative (Negative) Urine Opiates Screen (Not Detect) Ur Buprenorphine Scrn (Not Detect) ng/mL Ur Oxycodone Screen (Not Detect) ng/mL Urine Methadone Screen (Not Detect) ng/mL Urine Fentanyl Screen (Not Detect) Ur Barbiturates Screen (Not Detect) Ur Phencyclidine Scrn (Not Detect) Ur Amphetamines Screen (Not Detect) U Benzodiazepines Scrn (Not Detect) Urine Cocaine Screen (Not Detect) U Marijuana (THC) Screen (Not Detect) Ethyl Alcohol < 10 mg/dL COVID-19 (DENISE) (Negative) COVID-19 Clin Com Influenza Type A (KIYA) (Negative) Influenza Type B (KIYA) (Negative) Influenza A & B Note Independent Interpretation I performed an independent interpretation of an: EKG and CT Scan Interpretation: Rate: 74 Rhythm: SR [place]: 53/4/20 Normal P waves. Normal LEXI. Normal QRS complex. ST T wave : no st depressions, elevations. [id number] prior studies: none available. The study has been interpreted contemporaneously by me. I have reviewed the patient's imaging and agree with the radiologist's findings. Radiology Impression Discussion of test interpretation with radiology: I have reviewed the radiologist's reading. Radiologist Impression: CT Head: IMPRESSION: 1. No acute intracranial findings. Independent Historian Clinical information obtained from an independent historian. History obtained from or confirmed by: EMS External Record Review None available Chronic Conditions Patient?s care impacted by: Other (Alcohol abuse) Social Determinants Patient?s care significantly limited by Social Determinants of Health including: Alcoholism and drug addiction in family and Problems related to primary support group Discharge Plan Discharge Clinical Impression: Encounter for medical screening examination, Seizure Patient Disposition: Xfer Psychiatric Hosp Transfer Details: [facility] Instructions: Alcohol Withdrawal (DC) Additional Instructions: As we discussed, your workup here is overall reassuring. The CT of the head showed no acute abnormality, and your lab work was overall reassuring. You received IV fluids, and a 1 time dose of Valium. Your liver function tests were mildly elevated. Please have these follow up outpatient by your PCP. We are sending you back to [facility] to continue your alcohol detox. With any worsening complaints at any time, please return to the ED for reassessment. Referrals: Physician,Unknown J [Primary Care Provider, Medical] Print Language: Greenlandic
--- NOTE | 2025-05-12 00:32 | ECG_ITS ---
Test Reason : CHECK QTC Blood Pressure : */* mmHG Vent. Rate : 74 BPM Atrial Rate : 74 BPM P-R Int : 172 ms QRS Dur : 82 ms QT Int : 422 ms P-R-T Axes : 53 -4 20 degrees QTcB Int : 468 ms Normal sinus rhythm Minimal voltage criteria for LVH, may be normal variant ( R in aVL ) Borderline ECG No previous ECGs available Referred By: Pennie Tang Electronically Signed By: FELIBERTO TOMAS
--- NOTE | 2025-05-12 00:41 | PC.NURSE ---
Report given to equipment operator/laborer/supervisor Diana, Pt will be transported back to [facility] via [facility].
[2025-05-12 00:57] LABS: CDiff Gene PCR NEGATIVE (Negative)
[2025-05-12 02:12] VITALS: BP 117/73; PULSE 74; RESP 14; TEMP 36.6; O2SAT 97
[2025-05-12 08:35] LABS: E. coli EAEC Not Detected (Not Detect.); E. coli EPEC Not Detected (Not Detect.); E. coli ETEC Not Detected (Not Detect.); E. coli STEC Not Detected (Not Detect.); Shigella sp./EIEC Not Detected (Not Detect.)
== END 2025-05-12 02:12 ==
PROVIDERS: Nurse Practitioner; Emergency Provider Emergency Medicine
DX: R56.9 Unspecified convulsions (principal); R11.0 Nausea
CPT/HCPCS: 36415; 70450; 80053; 80307; 81003; 83605; 83735; 84702; 85025; 87493; 87502; 87507; 87635; 93005; 96360; 99285

== ENCOUNTER → 2025-05-12 00:32 | Outpatient (BNV) | payer OTHER, SELFPAY | PROVIDERS: Emergency Provider Emergency Medicine; Visit Provider Internal Medicine | DX: Z13.6 Encounter for screening for cardiovascular disorders (principal) | CPT/HCPCS: 93010 ==